=== PATIENT | male | born 1955 | race Caucasian/White ===

== ENCOUNTER 2017-04-09 20:09 | Emergency (ER) | payer BC ==
[2017-04-10 01:47] LABS: ADD MAN DIFF? NO
[2017-04-10 01:51] LABS: BASOPHIL # 0.1 10^3/ul (0.0-0.1); BASOPHILS % 0.8 % (0.0-2.0); EOSINOPHILS # 0.2 10^3/ul (0.0-0.5); EOSINOPHILS % 1.3 % (0.0-7.0); HEMATOCRIT 39.3 % (42.0-52.0); HEMOGLOBIN 13.2 g/dl (14.0-18.0); LYMPHOCYTES # 2.2 10^3/ul (0.8-2.9); LYMPHOCYTES % 19.5 % (15.0-51.0); MEAN CORPUSCULAR HEMOGLOBIN 29.7 pg (29.0-33.0); MEAN CORPUSCULAR HGB CONC 33.6 g/dl (32.0-37.0); MEAN CORPUSCULAR VOLUME 88.3 fl (82.0-101.0); MEAN PLATELET VOLUME 11.5 fl (7.4-10.4); MONOCYTE # 1.1 10^3/ul (0.3-0.9); MONOCYTES % 9.6 % (0.0-11.0); NEUTROPHIL # 7.8 10^3/ul (1.6-7.5); NEUTROPHILS % 68.5 % (39.0-77.0); PLATELET COUNT 183 10^3/UL (140-415); RED BLOOD COUNT 4.45 10^6/ul (4.70-6.10); RED CELL DISTRIBUTION WIDTH 13.5 % (11.5-14.5)
[2017-04-10 01:51] LABS: WHITE BLOOD COUNT 11.4 10^3/ul (4.8-10.8)
[2017-04-10 02:04] LABS: ADD UMIC YES; UR ASCORBIC ACID NEGATIVE (NEGATIVE); UR BACTERIA MODERATE /HPF (NONE SEEN); UR BILIRUBIN (Dip) NEGATIVE (NEGATIVE); UR BLOOD (Dip) 3+ mg/dL (NEGATIVE); UR CLARITY CLOUDY (CLEAR); UR COLOR YELLOW (YELLOW); UR GLUCOSE (Dip) 1+ mg/dL (NEGATIVE); UR KETONES (Dip) NEGATIVE (NEGATIVE); UR LEUKOCYTE ESTERASE (Dip) 3+ Leu/ul (NEGATIVE); UR MUCUS FEW /HPF (NONE SEEN); UR NITRITE (Dip) NEGATIVE (NEGATIVE); UR RBC > 182 /HPF (0-5); UR SPECIFIC GRAVITY (Dip) 1.019 (1.003-1.030); UR TOTAL PROTEIN (Dip) 2+ mg/dl (NEGATIVE); UR UROBILINOGEN (Dip) 1+ mg/dL (NEGATIVE); UR WBC > 182 /HPF (0-5)
[2017-04-10 02:05] LABS: INR 1.04; PROTIME 13.7 Sec (11.9-14.9); PT RATIO 1.1
[2017-04-10 02:06] LABS: PARTIAL THROMBOPLASTIN TIME 27.4 Sec (25.0-35.0)
[2017-04-10 02:11] LABS: ALANINE AMINOTRANSFERASE 33 IU/L (13-69); ALBUMIN 4.1 g/dl (3.3-4.9); ALBUMIN/GLOBULIN RATIO 1.07; ALKALINE PHOSPHATASE 100 IU/L (42-121); ANION GAP 15 (8-16); ASPARTATE AMINO TRANSFERASE 19 IU/L (15-46); BILIRUBIN,INDIRECT 0.3 mg/dl (0-1.1); BILIRUBIN,TOTAL 0.3 mg/dl (0.2-1.3); BLOOD UREA NITROGEN 12 mg/dl (7-20); CARBON DIOXIDE 26 mmol/L (21-31); CHLORIDE 105 mmol/L (97-110); GLUCOSE 212 mg/dl (70-220); POTASSIUM 3.9 mmol/L (3.5-5.1); SODIUM 142 mmol/L (135-144); TOTAL PROTEIN 7.9 g/dl (6.1-8.1)
[2017-04-10 02:14] LABS: LACTIC ACID 1.5 mmol/L (0.5-2.0)
[2017-04-10] MEDS: PIPER-TAZO 3.375 GM IV (PMX) 50 ML IV (02:50)
[2017-04-10] MEDS: ACETAMINOPHEN 325 MG TAB PO (02:50)
== END 2017-04-10 04:04 | disposition home or self-care (01) ==
LOC: E/R 20:09
DX: N50.811 Right testicular pain (principal); N39.0 Urinary tract infection, site not specified; I50.9 Heart failure, unspecified; I25.10 Atherosclerotic heart disease of native coronary artery without angina pectoris; I10 Essential (primary) hypertension; R40.2122 Coma scale, eyes open, to pain, at arrival to emergency department; R40.2252 Coma scale, best verbal response, oriented, at arrival to emergency department; R40.2362 Coma scale, best motor response, obeys commands, at arrival to emergency department; Z79.84 Long term (current) use of oral hypoglycemic drugs; Z79.82 Long term (current) use of aspirin; Z79.4 Long term (current) use of insulin
CPT/HCPCS: 36415; 71045; 76870; 80053; 81001; 83605; 85025; 85610; 85730; 87040; 87086; 93005; 96374; 99285-25

== ENCOUNTER 2018-09-13 17:59 | Inpatient (IN) | payer OTHER, BC, MEDICARE ==
[2018-09-13] MEDS: SODIUM CHLORIDE 0.9% 1L BAG IV* (18:52)
[2018-09-13 18:53] LABS: WHITE BLOOD COUNT 8.1 10^3/ul (4.8-10.8)
[2018-09-13 18:53] LABS: HEMATOCRIT 42.7 % (42.0-52.0); HEMOGLOBIN 14.3 g/dl (14.0-18.0); MEAN CORPUSCULAR HEMOGLOBIN 29.5 pg (29.0-33.0); MEAN CORPUSCULAR HGB CONC 33.5 g/dl (32.0-37.0); MEAN CORPUSCULAR VOLUME 88.2 fl (82.0-101.0); MEAN PLATELET VOLUME 11.8 fl (7.4-10.4); PLATELET COUNT 170 10^3/UL (140-415); POSITIVE DIFF @See below; RED BLOOD COUNT 4.84 10^6/ul (4.70-6.10); RED CELL DISTRIBUTION WIDTH 13.7 % (11.5-14.5)
[2018-09-13] MEDS: IBUPROFEN 600 MG TAB PO (18:54)
[2018-09-13] MEDS: CEFTRIAXONE 1 GM/50 ML (PMX) 50 ML IVPB (18:54)
[2018-09-13 19:09] LABS: ALANINE AMINOTRANSFERASE 32 IU/L (13-69); ALBUMIN 4.1 g/dl (3.3-4.9); ALBUMIN/GLOBULIN RATIO 1.17; ALKALINE PHOSPHATASE 92 IU/L (42-121); ANION GAP 12 (5-13); ASPARTATE AMINO TRANSFERASE 26 IU/L (15-46); BILIRUBIN,INDIRECT 1.2 mg/dl (0-1.1); BILIRUBIN,TOTAL 1.2 mg/dl (0.2-1.3); BLOOD UREA NITROGEN 15 mg/dl (7-20); CALCIUM 8.8 mg/dl (8.4-10.2); CARBON DIOXIDE 24 mmol/L (21-31); CHLORIDE 103 mmol/L (97-110); CREATININE 0.82 mg/dl (0.61-1.24); Estimated GFR > 60 mL/min (>60); GLUCOSE 66 mg/dl (70-220); LIPASE 133 U/L (23-300); POTASSIUM 3.2 mmol/L (3.5-5.1); SODIUM 139 mmol/L (135-144); TOTAL PROTEIN 7.6 g/dl (6.1-8.1)
[2018-09-13 19:12] LABS: ADD MAN DIFF? YES; INR 0.96; PROTIME 12.9 Sec (11.9-14.9)
[2018-09-13 19:20] LABS: ANISOCYTOSIS 1+ (0-0); BAND NEUTROPHILS #M 2.1 10^3/ul (0.0-0.6); BAND NEUTROPHILS % (M) 27 % (0-4); BASOPHIL #M 0.1 10^3/ul (0.0-0.0); BASOPHILS % (M) 2 % (0-2); GIANT THROMBO% (M) 1 % (0-0); LYMPHOCYTES #M 0.8 10^3/ul (0.8-2.9); LYMPHOCYTES % (M) 11 % (15-51); MICROCYTOSIS 1+ (0-0); PLATELET ESTIMATE NORMAL; POIKILOCYTOSIS 1+ (0-0); POLYCHROMASIA 1+ (0-0); SEGMENTED NEUTROPHILS (M) % 60 % (39-77); SMUDGE%M 2 % (0-0)
[2018-09-13 19:21] LABS: TROPONIN-I < 0.012 ng/ml (0.000-0.120)
[2018-09-13 20:13] LABS: ADD UMIC YES; UR ASCORBIC ACID NEGATIVE (NEGATIVE); UR BACTERIA FEW /HPF (NONE SEEN); UR BILIRUBIN (Dip) NEGATIVE (NEGATIVE); UR BLOOD (Dip) 3+ mg/dL (NEGATIVE); UR CLARITY CLOUDY (CLEAR); UR COLOR RED (YELLOW); UR GLUCOSE (Dip) NEGATIVE (NEGATIVE); UR KETONES (Dip) NEGATIVE (NEGATIVE); UR LEUKOCYTE ESTERASE (Dip) NEGATIVE Leu/ul (NEGATIVE); UR MUCUS MANY /HPF (NONE SEEN); UR NITRITE (Dip) POSITIVE (NEGATIVE); UR RBC > 182 /HPF (0-5); UR SQUAMOUS EPITHELIAL CELL FEW /HPF (FEW); UR TOTAL PROTEIN (Dip) 2+ mg/dl (NEGATIVE); UR UROBILINOGEN (Dip) 2+ mg/dL (NEGATIVE); UR WBC 17 /HPF (0-5)
[2018-09-13] MEDS: SOD CHLORIDE 0.9% 1,000 ML IV ×2 (20:34→21:53)
[2018-09-13] MEDS ORDERED: NACL 0.9% 3 ML SYG IV (21:00)
[2018-09-13] MEDS ORDERED: ACETAMINOPHEN 325 MG TAB PO (21:00)
[2018-09-13] MEDS ORDERED: DOCUSATE SODIUM 100 MG CAP PO (21:00)
[2018-09-13] MEDS: INSULIN ASPART [NOVOLOG] 3 ML PEN SC (21:00)
[2018-09-13] MEDS ORDERED: BISACODYL (EC) 5 MG TAB PO (21:00)
[2018-09-13 21:07] LABS: LACTIC ACID 1.8 mmol/L (0.5-2.0)
[2018-09-13] MEDS: ATORVASTATIN 80 MG TAB PO (21:30)
[2018-09-13] MEDS: TAMSULOSIN (SR) 0.4 MG CAP PO (21:30)
[2018-09-13] MEDS: CIPROFLOXACIN 400MG/D5W 200 ML IVPB (21:33)
[2018-09-13 23:16] LABS: LACTIC ACID 3.1 mmol/L (0.5-2.0)
[2018-09-13] MEDS ORDERED: DEXTROSE 50% 50 ML SYRINGE IV ×2 (23:30)
[2018-09-13] MEDS ORDERED: GLUCOSE GEL 15 GRAM TUBE PO ×2 (23:30)
[2018-09-13] MEDS: INSULIN GLARGINE [LANTus] (100 UNITS/ML) SYG SC (23:30)
[2018-09-13] MEDS ORDERED: GLUCOSE GEL 15 GRAM TUBE BUCCAL (23:30)
[2018-09-13] MEDS ORDERED: GLUCAGON 1 MG INJ IM (23:30)
[2018-09-14] MEDS: HYDROCODONE/APAP (5/325) TAB PO (00:46)
[2018-09-14] MEDS: SOD CHLORIDE 0.9% 500 ML IV (00:59)
[2018-09-14 01:06] LABS: LACTIC ACID 1.7 mmol/L (0.5-2.0)
[2018-09-14] MEDS: ACCU-CHEK XX (02:00)
[2018-09-14 05:59] LABS: ADD MAN DIFF? NO
[2018-09-14 06:11] LABS: WHITE BLOOD COUNT 20.4 10^3/ul (4.8-10.8)
[2018-09-14 06:11] LABS: BASOPHIL # 0.1 10^3/ul (0.0-0.1); BASOPHILS % 0.5 % (0.0-2.0); EOSINOPHILS # 0.2 10^3/ul (0.0-0.5); EOSINOPHILS % 0.9 % (0.0-7.0); HEMATOCRIT 33.2 % (42.0-52.0); HEMOGLOBIN 10.8 g/dl (14.0-18.0); LYMPHOCYTES # 1.4 10^3/ul (0.8-2.9); LYMPHOCYTES % 7.1 % (15.0-51.0); MEAN CORPUSCULAR HEMOGLOBIN 29.3 pg (29.0-33.0); MEAN CORPUSCULAR HGB CONC 32.5 g/dl (32.0-37.0); MEAN PLATELET VOLUME 12.4 fl (7.4-10.4); MONOCYTE # 0.8 10^3/ul (0.3-0.9); MONOCYTES % 3.9 % (0.0-11.0); NEUTROPHIL # 17.8 10^3/ul (1.6-7.5); PLATELET COUNT 136 10^3/UL (140-415); RED BLOOD COUNT 3.69 10^6/ul (4.70-6.10); RED CELL DISTRIBUTION WIDTH 14.2 % (11.5-14.5)
[2018-09-14 06:28] LABS: CHOL/HDL RATIO 2.9 RATIO; CHOLESTEROL 61 mg/dl (100-200); HDL CHOLESTEROL 21 mg/dl (30-78); LDL CHOLESTEROL,CALCULATED 16 mg/dl; TRIGLYCERIDES 122 mg/dl (0-149)
[2018-09-14 06:28] LABS: MAGNESIUM 1.8 mg/dl (1.7-2.5)
[2018-09-14 06:29] LABS: LACTIC ACID 1.5 mmol/L (0.5-2.0)
[2018-09-14] MEDS: SOD CHLORIDE 0.9% 1,000 ML IV (06:44)
[2018-09-14 06:53] LABS: ALANINE AMINOTRANSFERASE 31 IU/L (13-69); ALBUMIN 2.8 g/dl (3.3-4.9); ALBUMIN/GLOBULIN RATIO 1.03; ALKALINE PHOSPHATASE 57 IU/L (42-121); ANION GAP 6 (5-13); ASPARTATE AMINO TRANSFERASE 19 IU/L (15-46); BILIRUBIN,INDIRECT 0.9 mg/dl (0-1.1); BILIRUBIN,TOTAL 0.9 mg/dl (0.2-1.3); BLOOD UREA NITROGEN 14 mg/dl (7-20); CALCIUM 7.6 mg/dl (8.4-10.2); CARBON DIOXIDE 23 mmol/L (21-31); CHLORIDE 111 mmol/L (97-110); CREATININE 0.69 mg/dl (0.61-1.24); Estimated GFR > 60 mL/min (>60); GLUCOSE 192 mg/dl (70-220); POTASSIUM 3.6 mmol/L (3.5-5.1); SODIUM 140 mmol/L (135-144); TOTAL PROTEIN 5.5 g/dl (6.1-8.1)
[2018-09-14] MEDS ORDERED: INSULIN ISOPHAN SC (07:00)
[2018-09-14 07:09] LABS: HEMOGLOBIN A1C 6.5 % (0-5.9)
[2018-09-14] MEDS: FENOFIBRATE 145 MG TAB PO (08:44)
[2018-09-14] MEDS: ASPIRIN (EC) 81 MG TAB PO (08:45)
[2018-09-14] MEDS: FINASTERIDE 5 MG TAB PO (08:45)
[2018-09-14] MEDS: CIPROFLOXACIN 400MG/D5W 200 ML IVPB (08:49)
[2018-09-14] MEDS: INSULIN ASPART [NOVOLOG] 3 ML PEN SC ×4 (08:58→20:13)
[2018-09-14] MEDS: INSULIN GLARGINE [LANTus] (100 UNITS/ML) SYG SC ×2 (08:59→20:21)
[2018-09-14] MEDS ORDERED: hydrALAzine 20 MG INJ IV (09:30)
[2018-09-14] MEDS: CEFEPIME 1GM/50 ML (PMX) 50 ML IVPB ×2 (10:49→20:13)
[2018-09-14 11:28] LABS: LACTIC ACID 1.1 mmol/L (0.5-2.0)
[2018-09-14] MEDS: TAMSULOSIN (SR) 0.4 MG CAP PO (20:12)
[2018-09-14] MEDS: ATORVASTATIN 80 MG TAB PO (20:12)
[2018-09-14] MEDS: morphine 2 MG INJ IV (23:40)
[2018-09-15] MEDS: ACCU-CHEK XX (02:00)
[2018-09-15 06:13] LABS: ADD MAN DIFF? NO
[2018-09-15 06:24] LABS: WHITE BLOOD COUNT 14.8 10^3/ul (4.8-10.8)
[2018-09-15 06:24] LABS: ABNORMAL IP MESSAGE 1; BASOPHIL # 0.1 10^3/ul (0.0-0.1); BASOPHILS % 0.5 % (0.0-2.0); EOSINOPHILS # 0.4 10^3/ul (0.0-0.5); EOSINOPHILS % 2.5 % (0.0-7.0); HEMATOCRIT 34.4 % (42.0-52.0); HEMOGLOBIN 11.5 g/dl (14.0-18.0); LYMPHOCYTES # 1.9 10^3/ul (0.8-2.9); LYMPHOCYTES % 12.6 % (15.0-51.0); MEAN CORPUSCULAR HEMOGLOBIN 29.6 pg (29.0-33.0); MEAN CORPUSCULAR HGB CONC 33.4 g/dl (32.0-37.0); MEAN CORPUSCULAR VOLUME 88.7 fl (82.0-101.0); MEAN PLATELET VOLUME 13.1 fl (7.4-10.4); MONOCYTE # 0.9 10^3/ul (0.3-0.9); MONOCYTES % 5.9 % (0.0-11.0); NEUTROPHIL # 11.6 10^3/ul (1.6-7.5); NEUTROPHILS % 78.1 % (39.0-77.0); PLATELET COUNT 134 10^3/UL (140-415); POSITIVE DIFF @See below; RED BLOOD COUNT 3.88 10^6/ul (4.70-6.10); RED CELL DISTRIBUTION WIDTH 14.4 % (11.5-14.5)
[2018-09-15 07:10] LABS: ALANINE AMINOTRANSFERASE 31 IU/L (13-69); ALBUMIN 3.3 g/dl (3.3-4.9); ALBUMIN/GLOBULIN RATIO 1.06; ALKALINE PHOSPHATASE 73 IU/L (42-121); ANION GAP 8 (5-13); ASPARTATE AMINO TRANSFERASE 21 IU/L (15-46); BILIRUBIN,INDIRECT 0.7 mg/dl (0-1.1); BILIRUBIN,TOTAL 0.7 mg/dl (0.2-1.3); BLOOD UREA NITROGEN 11 mg/dl (7-20); CALCIUM 8.3 mg/dl (8.4-10.2); CARBON DIOXIDE 27 mmol/L (21-31); CHLORIDE 106 mmol/L (97-110); CREATININE 0.63 mg/dl (0.61-1.24); Estimated GFR > 60 mL/min (>60); GLUCOSE 92 mg/dl (70-220); POTASSIUM 3.5 mmol/L (3.5-5.1); SODIUM 141 mmol/L (135-144); TOTAL PROTEIN 6.4 g/dl (6.1-8.1)
[2018-09-15] MEDS: INSULIN ASPART [NOVOLOG] 3 ML PEN SC ×4 (08:00→21:25)
[2018-09-15] MEDS: CEFEPIME 1GM/50 ML (PMX) 50 ML IVPB ×2 (08:23→21:04)
[2018-09-15] MEDS: FINASTERIDE 5 MG TAB PO (08:26)
[2018-09-15] MEDS: ASPIRIN (EC) 81 MG TAB PO (08:26)
[2018-09-15] MEDS: FENOFIBRATE 145 MG TAB PO (08:26)
[2018-09-15] MEDS: INSULIN GLARGINE [LANTus] (100 UNITS/ML) SYG SC ×2 (11:19→21:25)
[2018-09-15] MEDS: ATORVASTATIN 80 MG TAB PO (21:10)
[2018-09-15] MEDS: TAMSULOSIN (SR) 0.4 MG CAP PO (21:10)
[2018-09-15] MEDS: morphine 2 MG INJ IV (21:11)
[2018-09-16] MEDS: ACCU-CHEK XX (01:41)
[2018-09-16 06:22] LABS: ADD MAN DIFF? NO
[2018-09-16 06:28] LABS: WHITE BLOOD COUNT 10.4 10^3/ul (4.8-10.8)
[2018-09-16 06:28] LABS: BASOPHIL # 0.1 10^3/ul (0.0-0.1); BASOPHILS % 0.7 % (0.0-2.0); EOSINOPHILS # 0.3 10^3/ul (0.0-0.5); EOSINOPHILS % 2.6 % (0.0-7.0); HEMATOCRIT 38.8 % (42.0-52.0); LYMPHOCYTES % 19.2 % (15.0-51.0); MEAN CORPUSCULAR HEMOGLOBIN 29.3 pg (29.0-33.0); MEAN CORPUSCULAR HGB CONC 33.5 g/dl (32.0-37.0); MEAN CORPUSCULAR VOLUME 87.6 fl (82.0-101.0); MEAN PLATELET VOLUME 12.5 fl (7.4-10.4); MONOCYTE # 0.8 10^3/ul (0.3-0.9); MONOCYTES % 7.7 % (0.0-11.0); NEUTROPHIL # 7.2 10^3/ul (1.6-7.5); NEUTROPHILS % 69.4 % (39.0-77.0); PLATELET COUNT 168 10^3/UL (140-415); RED BLOOD COUNT 4.43 10^6/ul (4.70-6.10)
[2018-09-16 06:58] LABS: MAGNESIUM 2.1 mg/dl (1.7-2.5)
[2018-09-16 07:02] LABS: ALANINE AMINOTRANSFERASE 27 IU/L (13-69); ALBUMIN 3.7 g/dl (3.3-4.9); ALBUMIN/GLOBULIN RATIO 1.02; ALKALINE PHOSPHATASE 92 IU/L (42-121); ANION GAP 13 (5-13); ASPARTATE AMINO TRANSFERASE 23 IU/L (15-46); BLOOD UREA NITROGEN 11 mg/dl (7-20); CARBON DIOXIDE 29 mmol/L (21-31); CHLORIDE 104 mmol/L (97-110); CREATININE 0.58 mg/dl (0.61-1.24); Estimated GFR > 60 mL/min (>60); GLUCOSE 58 mg/dl (70-220); POTASSIUM 3.5 mmol/L (3.5-5.1); SODIUM 146 mmol/L (135-144); TOTAL PROTEIN 7.3 g/dl (6.1-8.1)
[2018-09-16 07:25] LABS: BILIRUBIN,INDIRECT 0.8 mg/dl (0-1.1); BILIRUBIN,TOTAL 0.8 mg/dl (0.2-1.3)
[2018-09-16] MEDS: INSULIN ASPART [NOVOLOG] 3 ML PEN SC ×4 (08:00→21:00)
[2018-09-16] MEDS: CEFEPIME 1GM/50 ML (PMX) 50 ML IVPB (08:13)
[2018-09-16] MEDS: ASPIRIN (EC) 81 MG TAB PO (08:14)
[2018-09-16] MEDS: FENOFIBRATE 145 MG TAB PO (08:14)
[2018-09-16] MEDS: FINASTERIDE 5 MG TAB PO (08:14)
[2018-09-16] MEDS: INSULIN GLARGINE [LANTus] (100 UNITS/ML) SYG SC ×2 (08:44→21:31)
[2018-09-16] MEDS: CIPROFLOXACIN 500 MG TAB PO (17:57)
[2018-09-16] MEDS ORDERED: CIPROFLOXACIN 400MG/D5W 200 ML IVPB (21:00)
[2018-09-16] MEDS: TAMSULOSIN (SR) 0.4 MG CAP PO (21:26)
[2018-09-16] MEDS: ATORVASTATIN 80 MG TAB PO (21:27)
[2018-09-17] MEDS: ACCU-CHEK XX (02:00)
[2018-09-17 05:33] LABS: ADD MAN DIFF? NO
[2018-09-17] MEDS: CIPROFLOXACIN 500 MG TAB PO (05:35)
[2018-09-17 05:39] LABS: BASOPHIL # 0.1 10^3/ul (0.0-0.1); BASOPHILS % 1.2 % (0.0-2.0); EOSINOPHILS # 0.4 10^3/ul (0.0-0.5); EOSINOPHILS % 4.8 % (0.0-7.0); HEMATOCRIT 41.6 % (42.0-52.0); HEMOGLOBIN 13.9 g/dl (14.0-18.0); LYMPHOCYTES % 24.3 % (15.0-51.0); MEAN CORPUSCULAR HEMOGLOBIN 29.3 pg (29.0-33.0); MEAN CORPUSCULAR HGB CONC 33.4 g/dl (32.0-37.0); MEAN CORPUSCULAR VOLUME 87.6 fl (82.0-101.0); MEAN PLATELET VOLUME 11.3 fl (7.4-10.4); MONOCYTE # 0.9 10^3/ul (0.3-0.9); MONOCYTES % 10.6 % (0.0-11.0); NEUTROPHIL # 4.9 10^3/ul (1.6-7.5); NEUTROPHILS % 58.5 % (39.0-77.0); PLATELET COUNT 202 10^3/UL (140-415); RED BLOOD COUNT 4.75 10^6/ul (4.70-6.10); RED CELL DISTRIBUTION WIDTH 13.5 % (11.5-14.5)
[2018-09-17 05:39] LABS: WHITE BLOOD COUNT 8.3 10^3/ul (4.8-10.8)
[2018-09-17 06:00] LABS: MAGNESIUM 2.1 mg/dl (1.7-2.5)
[2018-09-17 06:04] LABS: ALANINE AMINOTRANSFERASE 21 IU/L (13-69); ALBUMIN 3.8 g/dl (3.3-4.9); ALKALINE PHOSPHATASE 87 IU/L (42-121); ANION GAP 10 (5-13); ASPARTATE AMINO TRANSFERASE 19 IU/L (15-46); BILIRUBIN,INDIRECT 0.7 mg/dl (0-1.1); BILIRUBIN,TOTAL 0.7 mg/dl (0.2-1.3); BLOOD UREA NITROGEN 14 mg/dl (7-20); CALCIUM 9.3 mg/dl (8.4-10.2); CARBON DIOXIDE 30 mmol/L (21-31); CHLORIDE 102 mmol/L (97-110); CREATININE 0.74 mg/dl (0.61-1.24); Estimated GFR > 60 mL/min (>60); GLUCOSE 127 mg/dl (70-220); SODIUM 142 mmol/L (135-144); TOTAL PROTEIN 7.6 g/dl (6.1-8.1)
[2018-09-17] MEDS: INSULIN ASPART [NOVOLOG] 3 ML PEN SC ×2 (08:00→12:57)
[2018-09-17] MEDS: ASPIRIN (EC) 81 MG TAB PO (08:56)
[2018-09-17] MEDS: FENOFIBRATE 145 MG TAB PO (08:56)
[2018-09-17] MEDS: FINASTERIDE 5 MG TAB PO (08:57)
[2018-09-17] MEDS: INSULIN GLARGINE [LANTus] (100 UNITS/ML) SYG SC (09:06)
== END 2018-09-17 14:35 | disposition home or self-care (01) | DRG 872 ==
LOC: E/R 17:59 → 2NE 09-16 13:52 → 6WM 20:52
PROVIDERS: Family Medicine
DX: A41.51 Sepsis due to Escherichia coli [E. coli] (principal); N39.0 Urinary tract infection, site not specified; I10 Essential (primary) hypertension; R65.20 Severe sepsis without septic shock; N40.0 Benign prostatic hyperplasia without lower urinary tract symptoms; E78.5 Hyperlipidemia, unspecified; I25.10 Atherosclerotic heart disease of native coronary artery without angina pectoris; I11.0 Hypertensive heart disease with heart failure; I50.9 Heart failure, unspecified; F17.210 Nicotine dependence, cigarettes, uncomplicated; D64.9 Anemia, unspecified; E11.9 Type 2 diabetes mellitus without complications; Z79.82 Long term (current) use of aspirin; Z79.4 Long term (current) use of insulin
CPT/HCPCS: 36415; 71045; 76870; 80053; 80061; 81001; 82962; 83036; 83605; 83690; 83735; 84153; 84154; 84443; 84484; 85025; 85610; 85730; 87040-91; 87086; 93005; 96365; 99285-25